=== PATIENT | male | born 1960 | race African-American/Black ===

== ENCOUNTER 2017-07-26 20:57 | Inpatient (IN) ==
[2017-07-26] MEDS ORDERED: VANCOMYCIN INJ 1,000 MG in SODIUM CHLORIDE 0.9% 250 ML IV STA (22:32)
[2017-07-26 23:07] LABS: Basophils # 0.1 10*3/uL (0.0-0.2); Basophils % 0.6 % (0.0-0.8); Eosinophils # 0.2 10*3/uL (0.0-0.87); Eosinophils % 1.7 % (0.00-10.9); Hematocrit 26.5 VOL% (42.0-52.0); Hemoglobin 8.1 GM/DL (14.0-18.0); Immature Granulocytes % 0.8 %; Lymphocytes # 1.2 10*3/uL (1.4-4.0); Lymphocytes % 9.4 % (21.2-54.2); Mean Corpuscular HGB Conc 30.6 GM/DL (32-36); Mean Corpuscular Hemoglobin 21 PG (27-34); Mean Corpuscular Volume 68.7 FL (87-102); Mean Platelet Volume 9.8 FL (9.6-12.0); Monocytes # 0.8 10*3/uL (0.11-0.8); Neutrophils # 10.8 10*3/uL (1.4-7.4); Neutrophils % 81.5 % (38.7-73.9); Platelet Count 365 T/CUMM (130-400); Red Blood Count 3.86 MC/CUMM (3.8-5.5); Red Cell Distribution Width 17.3 % (9.3-17.3); White Blood Count 13.2 T/CUMM (4-12)
[2017-07-26 23:19] LABS: Alanine Aminotransferase 28 U/L (16-61); Albumin 2.2 G/DL (3.4-5.0); Alkaline Phosphatase 311 U/L (45-117); Aspartate Amino Transferase 33 U/L (0-37); Bilirubin,Total < 0.39 MG/DL (0.2-1.0); Blood Urea Nitrogen 28 MG/DL (7-18); Calcium 8.4 MG/DL (8.5-10.1); Glucose 330 MG/DL (74-106); Osmolality,Calculated 286.2 MOS/KG (273-304); PT Patient Result 10.6 SECS; Potassium 4.4 MMOL/L (3.5-5.1); Sodium 134 MMOL/L (136-145); Total Protein 9.9 G/DL (6.4-8.3)
[2017-07-26 23:26] LABS: Lactic Acid 2.4 MMOL/L (0.4-2.0)
[2017-07-26] MEDS ORDERED: SODIUM CHLORIDE 0.9% 1,000 ML IV STA (23:27)
[2017-07-27] MEDS ORDERED: VANCOMYCIN 1,000 MG VIAL ONE (00:16)
[2017-07-27] MEDS ORDERED: ONDANSETRON 4 MG/2 ML VIAL ONE (00:29)
[2017-07-27] MEDS ORDERED: ONDANSETRON 4 MG/2 ML VIAL IV STA (01:12)
[2017-07-27] MEDS ORDERED: MORPHINE 2 MG/1 ML SYRINGE IV PRN (01:14)
[2017-07-27] MEDS ORDERED: ONDANSETRON 4 MG/2 ML VIAL IV PRN (01:14)
[2017-07-27] MEDS ORDERED: ACETAMINOPHEN 325 MG TABLET PO PRN (01:14)
[2017-07-27] MEDS ORDERED: DEXTROSE 50% 25 GM/50 ML VIAL IV PRN (01:26)
[2017-07-27] MEDS ORDERED: GLUCAGON 1 MG VIAL IM PRN (01:26)
[2017-07-27 02:12] LABS: Apearance,Urine CLEAR (Clear); Bilirubin,Urine Negative (Negative); Blood, Urine Small mg/dL (Negative); Glucose,Urine (UA) >=500 mg/dL (Negative); Ketones,Urine Negative (Negative); Mucus,Urine Occasional /LPF (Occasional); Nitrite,Urine Negative (Negative); Protein,Urine 30 MG/DL; RBC,Urine 3 /HPF (0-4); Squamous Epithelial Cell,Urine Occasional /HPF (0-10); Urine Color Straw (Yellow); Urine Specific Gravity 1.008 (1.001-1.035); Urine Urobilinogen < 2.0 EU/DL (0.2-1.0); WBC,Urine 2 /HPF (0-6)
[2017-07-27] MEDS: SODIUM CHLORIDE 0.9% 1,000 ML IV SCH ×2 (03:30→20:29)
[2017-07-27 05:21] LABS: Basophils # 0.1 10*3/uL (0.0-0.2); Basophils % 0.5 % (0.0-0.8); Eosinophils # 0.3 10*3/uL (0.0-0.87); Eosinophils % 2.2 % (0.00-10.9); Hematocrit 25.4 VOL% (42.0-52.0); Hemoglobin 8.1 GM/DL (14.0-18.0); Immature Granulocytes % 0.5 %; Immature Granulocytes Absolute 0.06 #; Lymphocytes # 1.4 10*3/uL (1.4-4.0); Mean Corpuscular HGB Conc 31.9 GM/DL (32-36); Mean Corpuscular Hemoglobin 22 PG (27-34); Mean Corpuscular Volume 67.7 FL (87-102); Monocytes # 0.9 10*3/uL (0.11-0.8); Monocytes % 7.3 % (1.7-12.7); Neutrophils # 9.2 10*3/uL (1.4-7.4); Neutrophils % 77.5 % (38.7-73.9); Platelet Count 357 T/CUMM (130-400); Red Blood Count 3.75 MC/CUMM (3.8-5.5); Red Cell Distribution Width 17.5 % (9.3-17.3); White Blood Count 11.9 T/CUMM (4-12)
[2017-07-27 05:59] LABS: Calcium 8.3 MG/DL (8.5-10.1); Osmolality,Calculated 279.7 MOS/KG (273-304); Potassium 4.5 MMOL/L (3.5-5.1)
[2017-07-27 06:10] LABS: Risk Ratio 4.1; Thyroid Stimulating Hormone 1.62 uIU/ml (0.358-3.74)
[2017-07-27] MEDS: INSULIN LISPRO 100 UNIT/ML SUBCUT SCH ×4 (08:00→20:33)
[2017-07-27] MEDS ORDERED: INFLUENZA VIRUS VACCINE 0.5 ML SYRINGE IM ONE (09:00)
[2017-07-27] MEDS: amLODIPine 10 MG TABLET PO SCH (10:00)
[2017-07-27] MEDS: GABAPENTIN 300 MG CAPSULE PO SCH (10:00)
[2017-07-27] MEDS: ASPIRIN EC 81 MG TABLET PO SCH (10:00)
[2017-07-27] MEDS: LISINOPRIL 20 MG TABLET PO SCH (10:00)
[2017-07-27] MEDS: ALLOPURINOL 300 MG TABLET PO SCH (10:00)
[2017-07-27] MEDS: PANTOPRAZOLE 40 MG TABLET PO SCH (10:00)
[2017-07-27] MEDS: ENOXAPARIN 40 MG/0.4 ML SYRINGE SUBCUT SCH (10:01)
[2017-07-27] MEDS ORDERED: VANCOMYCIN INJ 1,250 MG in SODIUM CHLORIDE 0.9% 250 ML IV SCH (20:00)
[2017-07-27] MEDS: VANCOMYCIN INJ 1,250 MG in SODIUM CHLORIDE 0.9% 250 ML IV SCH (20:29)
[2017-07-27] MEDS: INSULIN GLARGINE 100 UNIT/ML SUBCUT SCH (20:33)
[2017-07-28 05:36] LABS: Basophils # 0.1 10*3/uL (0.0-0.2); Basophils % 0.4 % (0.0-0.8); Eosinophils # 0.2 10*3/uL (0.0-0.87); Eosinophils % 1.2 % (0.00-10.9); Hematocrit 23.2 VOL% (42.0-52.0); Hemoglobin 7.5 GM/DL (14.0-18.0); Immature Granulocytes % 0.5 %; Immature Granulocytes Absolute 0.07 #; Lymphocytes # 1.3 10*3/uL (1.4-4.0); Lymphocytes % 9.5 % (21.2-54.2); Mean Corpuscular HGB Conc 32.3 GM/DL (32-36); Mean Corpuscular Hemoglobin 21 PG (27-34); Mean Corpuscular Volume 66.3 FL (87-102); Mean Platelet Volume 9.9 FL (9.6-12.0); Monocytes # 1.1 10*3/uL (0.11-0.8); Monocytes % 7.6 % (1.7-12.7); Neutrophils # 11.2 10*3/uL (1.4-7.4); Neutrophils % 80.8 % (38.7-73.9); Platelet Count 313 T/CUMM (130-400); Red Cell Distribution Width 17.2 % (9.3-17.3); White Blood Count 13.9 T/CUMM (4-12)
[2017-07-28 05:59] LABS: Calcium 7.9 MG/DL (8.5-10.1); Osmolality,Calculated 272.1 MOS/KG (273-304); Potassium 4.1 MMOL/L (3.5-5.1)
[2017-07-28] MEDS: INSULIN LISPRO 100 UNIT/ML SUBCUT SCH ×4 (07:38→20:52)
[2017-07-28] MEDS: ASPIRIN EC 81 MG TABLET PO SCH (09:16)
[2017-07-28] MEDS: GABAPENTIN 300 MG CAPSULE PO SCH (09:16)
[2017-07-28] MEDS: ALLOPURINOL 300 MG TABLET PO SCH (09:16)
[2017-07-28] MEDS: amLODIPine 10 MG TABLET PO SCH (09:17)
[2017-07-28] MEDS: LISINOPRIL 20 MG TABLET PO SCH (09:17)
[2017-07-28] MEDS: ENOXAPARIN 40 MG/0.4 ML SYRINGE SUBCUT SCH (09:17)
[2017-07-28] MEDS: PANTOPRAZOLE 40 MG TABLET PO SCH (09:17)
[2017-07-28] MEDS: LEVOFLOXACIN INJ 750 MG in PREMIX 1 EACH IV SCH (11:56)
[2017-07-28] MEDS: SODIUM CHLORIDE 0.9% 1,000 ML IV SCH (13:03)
[2017-07-28] MEDS: VANCOMYCIN INJ 1,250 MG in SODIUM CHLORIDE 0.9% 250 ML IV SCH (20:30)
[2017-07-28] MEDS: INSULIN GLARGINE 100 UNIT/ML SUBCUT SCH (20:33)
[2017-07-28] MEDS ORDERED: diphenhydrAMINE CAP 25 MG CAPSULE PO PRN (21:55)
[2017-07-29] MEDS: SODIUM CHLORIDE 0.9% 1,000 ML IV SCH ×2 (01:38→18:35)
[2017-07-29 04:12] LABS: Basophils # 0.1 10*3/uL (0.0-0.2); Basophils % 0.6 % (0.0-0.8); Eosinophils # 0.2 10*3/uL (0.0-0.87); Eosinophils % 1.8 % (0.00-10.9); Hematocrit 24.2 VOL% (42.0-52.0); Hemoglobin 7.6 GM/DL (14.0-18.0); Immature Granulocytes % 0.5 %; Immature Granulocytes Absolute 0.06 #; Lymphocytes # 1.7 10*3/uL (1.4-4.0); Lymphocytes % 13.7 % (21.2-54.2); Mean Corpuscular HGB Conc 31.4 GM/DL (32-36); Mean Corpuscular Hemoglobin 22 PG (27-34); Mean Corpuscular Volume 68.4 FL (87-102); Mean Platelet Volume 10.4 FL (9.6-12.0); Monocytes % 8.2 % (1.7-12.7); Neutrophils # 9.6 10*3/uL (1.4-7.4); Neutrophils % 75.2 % (38.7-73.9); Platelet Count 295 T/CUMM (130-400); Red Blood Count 3.54 MC/CUMM (3.8-5.5); Red Cell Distribution Width 16.8 % (9.3-17.3); White Blood Count 12.7 T/CUMM (4-12)
[2017-07-29 04:13] LABS: Basophils % 0.3 % (0.0-0.8); Eosinophils # 0.2 10*3/uL (0.0-0.87); Eosinophils % 1.7 % (0.00-10.9); Hematocrit 23.6 VOL% (42.0-52.0); Hemoglobin 7.8 GM/DL (14.0-18.0); Immature Granulocytes % 0.4 %; Immature Granulocytes Absolute 0.05 #; Lymphocytes # 1.6 10*3/uL (1.4-4.0); Lymphocytes % 13.5 % (21.2-54.2); Mean Corpuscular HGB Conc 33.1 GM/DL (32-36); Mean Corpuscular Hemoglobin 22 PG (27-34); Mean Corpuscular Volume 66.1 FL (87-102); Mean Platelet Volume 10.1 FL (9.6-12.0); Neutrophils % 76.1 % (38.7-73.9); Platelet Count 288 T/CUMM (130-400); Red Blood Count 3.57 MC/CUMM (3.8-5.5); Red Cell Distribution Width 17.1 % (9.3-17.3); White Blood Count 11.9 T/CUMM (4-12)
[2017-07-29 04:31] LABS: Calcium 8.2 MG/DL (8.5-10.1); Potassium 3.8 MMOL/L (3.5-5.1)
[2017-07-29 04:50] LABS: Folate 8.4 NG/ML (5.4-24.0); Vitamin B12 637 PG/ML (211-911)
[2017-07-29 05:26] LABS: Sedimentation Rate-Westergren 126 MM/HR (0-20)
[2017-07-29] MEDS: INSULIN LISPRO 100 UNIT/ML SUBCUT SCH ×4 (07:38→20:46)
[2017-07-29] MEDS ORDERED: SODIUM CHLORIDE 0.9% 1,000 ML IV PRN (08:31)
[2017-07-29] MEDS ORDERED: PROPOFOL 200 MG/20 ML VIAL IV ONE (12:11)
[2017-07-29] MEDS ORDERED: PHENYLEPHRINE 1 MG/10 ML SYRINGE IV ONE (12:12)
[2017-07-29] MEDS ORDERED: fentaNYL 100 MCG/2 ML VIAL ONE (12:12)
[2017-07-29] MEDS ORDERED: MIDAZOLAM 2 MG/2 ML VIAL ONE (12:12)
[2017-07-29] MEDS ORDERED: SEVOFLURANE 1 UNIT/15 MINUTE INH ONE (12:12)
[2017-07-29] MEDS: ENOXAPARIN 40 MG/0.4 ML SYRINGE SUBCUT SCH ×2 (14:42→15:09)
[2017-07-29] MEDS: ASPIRIN EC 81 MG TABLET PO SCH (14:42)
[2017-07-29] MEDS: PANTOPRAZOLE 40 MG TABLET PO SCH (14:43)
[2017-07-29] MEDS: amLODIPine 10 MG TABLET PO SCH (14:43)
[2017-07-29] MEDS: ALLOPURINOL 300 MG TABLET PO SCH (14:43)
[2017-07-29] MEDS: LISINOPRIL 20 MG TABLET PO SCH (14:43)
[2017-07-29] MEDS: LEVOFLOXACIN INJ 750 MG in PREMIX 1 EACH IV SCH (14:43)
[2017-07-29] MEDS: GABAPENTIN 300 MG CAPSULE PO SCH (14:43)
[2017-07-29 16:40] LABS: Hematocrit 31.4 VOL% (42.0-52.0)
[2017-07-29] MEDS: VANCOMYCIN INJ 1,250 MG in SODIUM CHLORIDE 0.9% 250 ML IV SCH (20:43)
[2017-07-29] MEDS: INSULIN GLARGINE 100 UNIT/ML SUBCUT SCH (20:45)
[2017-07-30 05:25] LABS: Basophils # 0.1 10*3/uL (0.0-0.2); Basophils % 0.4 % (0.0-0.8); Eosinophils # 0.3 10*3/uL (0.0-0.87); Hematocrit 29.9 VOL% (42.0-52.0); Hemoglobin 10.1 GM/DL (14.0-18.0); Immature Granulocytes % 0.4 %; Immature Granulocytes Absolute 0.06 #; Lymphocytes # 0.8 10*3/uL (1.4-4.0); Lymphocytes % 5.8 % (21.2-54.2); Mean Corpuscular HGB Conc 33.8 GM/DL (32-36); Mean Corpuscular Hemoglobin 24 PG (27-34); Mean Corpuscular Volume 69.5 FL (87-102); Mean Platelet Volume 9.9 FL (9.6-12.0); Monocytes # 0.8 10*3/uL (0.11-0.8); Monocytes % 5.6 % (1.7-12.7); Neutrophils # 11.7 10*3/uL (1.4-7.4); Neutrophils % 85.8 % (38.7-73.9); Platelet Count 265 T/CUMM (130-400); Red Cell Distribution Width 19.1 % (9.3-17.3); White Blood Count 13.7 T/CUMM (4-12)
[2017-07-30 05:45] LABS: Calcium 7.8 MG/DL (8.5-10.1); Osmolality,Calculated 272.8 MOS/KG (273-304); Potassium 3.9 MMOL/L (3.5-5.1)
[2017-07-30] MEDS: GABAPENTIN 300 MG CAPSULE PO SCH (08:44)
[2017-07-30] MEDS: ALLOPURINOL 300 MG TABLET PO SCH (08:45)
[2017-07-30] MEDS: LISINOPRIL 20 MG TABLET PO SCH (08:45)
[2017-07-30] MEDS: amLODIPine 10 MG TABLET PO SCH (08:45)
[2017-07-30] MEDS: PANTOPRAZOLE 40 MG TABLET PO SCH (08:46)
[2017-07-30] MEDS: ASPIRIN EC 81 MG TABLET PO SCH (08:46)
[2017-07-30] MEDS: LEVOFLOXACIN INJ 750 MG in PREMIX 1 EACH IV SCH (08:50)
[2017-07-30] MEDS: ENOXAPARIN 40 MG/0.4 ML SYRINGE SUBCUT SCH (08:51)
[2017-07-30] MEDS: INSULIN LISPRO 100 UNIT/ML SUBCUT SCH ×4 (08:51→21:06)
[2017-07-30 09:53] LABS: Hemoglobin A2 (Alkaline) 2.2 % (1.5-3.5)
[2017-07-30] MEDS ORDERED: MAGNESIUM SULF RIDER 4 GM in PREMIX 1 EACH IV PRN (10:02)
[2017-07-30] MEDS ORDERED: MAGNESIUM SULF RIDER 2 GM in PREMIX 1 EACH IV PRN (10:02)
[2017-07-30 10:46] LABS: Hemoglobin S (Alkaline) 32.8 %
[2017-07-30] MEDS: metroNIDAZOLE INJ 500 MG in PREMIX 1 EACH IV SCH ×2 (13:48→23:06)
[2017-07-30] MEDS: SODIUM CHLORIDE 0.9% 1,000 ML IV SCH (15:07)
[2017-07-30] MEDS: VANCOMYCIN INJ 1,250 MG in SODIUM CHLORIDE 0.9% 250 ML IV SCH (21:32)
[2017-07-30] MEDS: INSULIN GLARGINE 100 UNIT/ML SUBCUT SCH (21:34)
[2017-07-31] MEDS: metroNIDAZOLE INJ 500 MG in PREMIX 1 EACH IV SCH ×3 (05:45→23:25)
[2017-07-31] MEDS: SODIUM CHLORIDE 0.9% 1,000 ML IV SCH (05:46)
[2017-07-31] MEDS: INSULIN LISPRO 100 UNIT/ML SUBCUT SCH ×4 (09:12→21:46)
[2017-07-31] MEDS: LISINOPRIL 20 MG TABLET PO SCH (09:45)
[2017-07-31] MEDS: GABAPENTIN 300 MG CAPSULE PO SCH (09:45)
[2017-07-31] MEDS: amLODIPine 10 MG TABLET PO SCH (09:45)
[2017-07-31] MEDS: ASPIRIN EC 81 MG TABLET PO SCH (09:46)
[2017-07-31] MEDS: ALLOPURINOL 300 MG TABLET PO SCH (09:46)
[2017-07-31] MEDS: PANTOPRAZOLE 40 MG TABLET PO SCH (09:46)
[2017-07-31] MEDS: LEVOFLOXACIN INJ 750 MG in PREMIX 1 EACH IV SCH (09:48)
[2017-07-31] MEDS: ENOXAPARIN 40 MG/0.4 ML SYRINGE SUBCUT SCH (10:02)
[2017-07-31] MEDS: VANCOMYCIN INJ 1,250 MG in SODIUM CHLORIDE 0.9% 250 ML IV SCH (21:45)
[2017-07-31] MEDS: INSULIN GLARGINE 100 UNIT/ML SUBCUT SCH (21:46)
[2017-08-01] MEDS: metroNIDAZOLE INJ 500 MG in PREMIX 1 EACH IV SCH (06:00)
[2017-08-01 07:02] LABS: Basophils # 0.1 10*3/uL (0.0-0.2); Basophils % 0.6 % (0.0-0.8); Eosinophils # 0.3 10*3/uL (0.0-0.87); Eosinophils % 2.7 % (0.00-10.9); Hematocrit 29.1 VOL% (42.0-52.0); Hemoglobin 9.6 GM/DL (14.0-18.0); Immature Granulocytes % 0.4 %; Immature Granulocytes Absolute 0.05 #; Lymphocytes # 1.3 10*3/uL (1.4-4.0); Lymphocytes % 10.4 % (21.2-54.2); Mean Corpuscular Hemoglobin 23 PG (27-34); Mean Corpuscular Volume 69.5 FL (87-102); Mean Platelet Volume 9.7 FL (9.6-12.0); Monocytes # 1.3 10*3/uL (0.11-0.8); Monocytes % 10.5 % (1.7-12.7); Neutrophils # 9.1 10*3/uL (1.4-7.4); Neutrophils % 75.4 % (38.7-73.9); Platelet Count 261 T/CUMM (130-400); Red Blood Count 4.19 MC/CUMM (3.8-5.5); White Blood Count 12.1 T/CUMM (4-12)
[2017-08-01 07:41] LABS: Albumin 1.8 G/DL (3.4-5.0); Bilirubin,Total 0.5 MG/DL (0.2-1.0); Calcium 8.3 MG/DL (8.5-10.1); Osmolality,Calculated 278.4 MOS/KG (273-304); Potassium 3.7 MMOL/L (3.5-5.1); Total Protein 8.4 G/DL (6.4-8.3)
[2017-08-01] MEDS: INSULIN LISPRO 100 UNIT/ML SUBCUT SCH ×4 (07:57→21:29)
[2017-08-01] MEDS: LEVOFLOXACIN INJ 750 MG in PREMIX 1 EACH IV SCH (08:01)
[2017-08-01] MEDS: ASPIRIN EC 81 MG TABLET PO SCH (08:01)
[2017-08-01] MEDS: ENOXAPARIN 40 MG/0.4 ML SYRINGE SUBCUT SCH (08:01)
[2017-08-01] MEDS: GABAPENTIN 300 MG CAPSULE PO SCH (08:01)
[2017-08-01] MEDS: LISINOPRIL 20 MG TABLET PO SCH (08:02)
[2017-08-01] MEDS: ALLOPURINOL 300 MG TABLET PO SCH (08:02)
[2017-08-01] MEDS: PANTOPRAZOLE 40 MG TABLET PO SCH (08:02)
[2017-08-01] MEDS: amLODIPine 10 MG TABLET PO SCH (08:02)
[2017-08-01] MEDS ORDERED: HUMIRA 40 MG SUBCUT SCH (09:00)
[2017-08-01] MEDS: SODIUM CHLORIDE 0.9% 1,000 ML IV SCH (12:56)
[2017-08-01] MEDS ORDERED: SODIUM CHLORIDE 0.9% 1,000 ML IV SCH (13:00)
[2017-08-01] MEDS ORDERED: metroNIDAZOLE 500 MG TABLET PO SCH (15:00)
[2017-08-01] MEDS: LINEZOLID 600 MG TABLET PO SCH ×2 (15:30→21:28)
[2017-08-01] MEDS: INSULIN GLARGINE 100 UNIT/ML SUBCUT SCH (21:28)
[2017-08-02] MEDS: INSULIN LISPRO 100 UNIT/ML SUBCUT SCH ×2 (07:03→12:15)
[2017-08-02] MEDS: GABAPENTIN 300 MG CAPSULE PO SCH (08:41)
[2017-08-02] MEDS: LISINOPRIL 20 MG TABLET PO SCH (08:41)
[2017-08-02] MEDS: LINEZOLID 600 MG TABLET PO SCH (08:41)
[2017-08-02] MEDS: ALLOPURINOL 300 MG TABLET PO SCH (08:41)
[2017-08-02] MEDS: ASPIRIN EC 81 MG TABLET PO SCH (08:42)
[2017-08-02] MEDS: PANTOPRAZOLE 40 MG TABLET PO SCH (08:42)
[2017-08-02] MEDS: ENOXAPARIN 40 MG/0.4 ML SYRINGE SUBCUT SCH ×2 (08:42→08:44)
[2017-08-02] MEDS: amLODIPine 10 MG TABLET PO SCH (08:42)
[2017-08-02] MEDS ORDERED: LEVOFLOXACIN 750 MG TABLET PO SCH (09:00)
[2017-08-02 12:18] VITALS: BP 132/84
== END 2017-08-02 15:04 | disposition home or self-care (01) | DRG 720 ==
LOC: N.ED 20:57 → SUATTDRO 07-27 00:15 → N.EDINP 07-27 00:15 → N.2E 07-27 01:03
PROVIDERS: ADMIT Internal Medicine; ATTEND Internal Medicine Cardiovascular Disease